=== PATIENT | female | born 1975 | race Caucasian/White ===

== ENCOUNTER 2016-09-20 13:27 | Emergency (ER) | payer OTHER ==
[2016-09-20 13:33] VITALS: TEMP 97.6
[2016-09-20 14:24] LABS: URINE APPEARANCE CLEAR; URINE BILIRUBIN NEGATIVE (NEGATIVE); URINE BLOOD NEGATIVE (NEGATIVE); URINE COLOR YELLOW; URINE GLUCOSE (UA) NEGATIVE (NEGATIVE); URINE KETONE TRACE (NEGATIVE); URINE NITRITE NEGATIVE (NEGATIVE); URINE PROTEIN NEGATIVE (NEGATIVE); URINE UROBILINOGEN NEGATIVE E.U./dl (0.2-1.0)
[2016-09-20 14:33] LABS: BASOPHIL 0.9 % (0-2.0); EOSINOPHIL 1.2 % (0-4.5); MCH 30.5 pg (25.7-33.7); MCHC 33.6 g/dl (32.0-36.0); MEAN CELL VOLUME 90.9 fl (80-96); NEUTROPHILS 73.9 % (42.8-82.8); PLATELET COUNT 318 K/MM3 (134-434); RDW 13.1 % (11.6-15.6); WHITE BLOOD COUNT 8.3 K/mm3 (4.0-10.0)
[2016-09-20 15:03] LABS: URINE LEUK ESTERASE 3+ (NEGATIVE)
[2016-09-20 15:04] LABS: URINE MUCUS RARE; URINE RBC 1 /hpf (0-3); URINE WBC <1 /hpf (3-5)
[2016-09-20 15:10] LABS: ALBUMIN 4.1 g/dl (3.4-5.0); ANION GAP 15 (8-16); CALCIUM 9.1 mg/dL (8.5-10.1); CO2 27 mmol/L (21-32); CREATININE 0.8 mg/dL (0.55-1.02); GLUCOSE,RANDOM 110 mg/dL (74-106); SGOT/AST 18 U/L (15-37); SGPT/ALT 38 U/L (12-78)
[2016-09-20] MEDS ORDERED: ACETAMINOPHEN 325 MG TABLET (FP) PO ONE (15:21)
[2016-09-20] MEDS ORDERED: ACETAMINOPHEN 325 MG TABLET (FP) ONE (15:24)
[2016-09-20 15:30] LABS: ALK PHOS 76 U/L (45-117); BILIRUBIN,TOTAL 0.4 mg/dL (0.2-1.0); TOT PROT 7.5 g/dl (6.4-8.2)
--- NOTE | 2016-09-20 15:49 | PDOC ---
History of Present Illness - History of Present Illness Initial Comments: 09/20/16 16:02 The patient is a 40 year old female who is 6 weeks with no past medical hx who presents to the ED complaining of left groin pain since yesterday. The patient states she woke two days ago with the pain and was unable to get out of bed. She needed assistance from her friend to get out of bed, get into the shower, and get dressed. She states she is having difficulty walking secondary to the pain. The patient found out last week she was . She took 4 at home tests and made an appointment with her OB /LAMINATOR HAND on the for an US. The patient denies fever, chills The patient denies diarrhea, vomiting The patient denies dysuria, vaginal bleeding or spotting. Allergies: NKDA Social: No toxic habits reported Surgical: PCP: Dr. David Fernando <Kelli Capone - Last Filed: 09/20/16 16:03> - General History Source: Patient Exam Limitations: No Limitations <Michelle Castro - Last Filed: 09/23/16 10:36> - General Chief Complaint: Pain Stated Complaint: 6 WEEKS /PAIN Time Seen by Provider: 09/20/16 14:22 Past History <Kelli Capone - Last Filed: 09/20/16 16:03> - Past Medical History Other medical history: NONE - Reproductive History Is Patient Now?: Yes (#): 2 Para: 1 - Psycho/Social/Smoking Cessation Hx Anxiety: No Suicidal Ideation: No Smoking History: Never smoked Hx Alcohol Use: No Drug/Substance Use Hx: No Substance Use Type: None <Michelle Castro - Last Filed: 09/23/16 10:36> - Past Medical History Allergies/Adverse Reactions: Allergies Allergy/AdvReac Type Severity Reaction Status Date / Time No Known Allergies Allergy Verified 09/20/16 13:33 Home Medications: Ambulatory Orders NK [No Known Home Medication] 09/20/16 Review of Systems - Review of Systems Able to Perform ROS?: Yes Comments:: 09/20/16 16:01 GENERAL/CONSTITUTIONAL: No: fever, chills, weakness, loss of appetite. HEAD, EYES, EARS, NOSE AND THROAT: No: change in vision, ear pain, discharge, sore throat, throat swelling. CARDIOVASCULAR: No: chest pain, lightheadedness, palpitations, syncope RESPIRATORY: No: cough, shortness of breath, wheezing, hemoptysis, stridor. GASTROINTESTINAL:. No: nausea, vomiting, diarrhea, rectal bleeding, constipation. GENITOURINARY: No: vaginal bleeding, dysuria, hematuria, frequency, urgency, flank pain. MUSCULOSKELETAL: +Left groin pain. No: back pain, neck pain. SKIN: No: lesions, pallor, rash or easy bruising. NEUROLOGIC: No: headache, vertigo, paresthesias, weakness ENDOCRINE: No: unexplained weight gain or loss HEMATOLOGIC/LYMPHATIC: No: anemia, easy bleeding, swelling nodes <Kelli Capone - Last Filed: 09/20/16 16:03> *Physical Exam - Vital Signs Last Vital Signs Temp Pulse Resp BP Pulse Ox 97.6 F 100 H 20 130/73 100 09/20/16 13:30 09/20/16 13:30 09/20/16 13:30 09/20/16 13:30 09/20/16 13:30 - Physical Exam Comments: 09/20/16 16:02 GENERAL: The patient is in no acute distress. HEAD: Normal with no signs of trauma. EYES: PERRLA, EOMI, sclera anicteric, conjunctiva clear. ENT: Ears normal, nares patent, oropharynx clear without exudates. Moist mucous membranes. NECK: Normal range of motion, supple without lymphadenopathy, JVD, or masses. LUNGS: Breath sounds equal, clear to auscultation bilaterally. No wheezes, and no crackles. HEART:Regular rate and rhythm, normal S1 and S2 without murmur, rub or gallop. ABDOMEN: Soft, nontender, normoactive bowel sounds. No guarding, no rebound. EXTREMITIES: Normal range of motion, no edema. No clubbing or cyanosis. No erythema, or tenderness. NEUROLOGICAL: Cranial nerves II through XII grossly intact. Normal speech. No focal neurological deficits. MUSCULOSKELETAL: Back nontender to palpation, no CVA tenderness SKIN: Warm, Dry, normal turgor, no rashes or lesions noted <Kelli Capone - Last Filed: 09/20/16 16:03> - Vital Signs Last Vital Signs Temp Pulse Resp BP Pulse Ox 97.6 F 100 H 20 130/73 100 01/14/17 13:30 09/20/16 13:30 09/20/16 13:30 09/20/16 13:30 09/20/16 13:30 <Michelle Castro - Last Filed: 09/23/16 10:36> ED Treatment Course - LABORATORY CBC & Chemistry Diagram: 09/20/16 14:25 09/20/16 14:25 - ADDITIONAL ORDERS Additional order review: Laboratory Results 09/20/16 09/20/16 14:25 14:15 Sodium 147 H Potassium 3.9 Chloride 105 Carbon Dioxide 27 Anion Gap 15 BUN 10 Creatinine 0.8 Creat Clearance w eGFR > 60 Random Glucose 110 H Calcium 9.1 Total Bilirubin 0.4 AST 18 ALT 38 Alkaline Phosphatase 76 Total Protein 7.5 Albumin 4.1 Beta HCG, Quant 4255.8 Urine Color Yellow Urine Appearance Clear Urine pH 5.0 Ur Specific [place] 1.018 Urine Protein Negative Urine Glucose (UA) Negative Urine Ketones Trace H Urine Blood Negative Urine Nitrite Negative Urine Bilirubin Negative Urine Urobilinogen Negative Ur Leukocyte Esterase 3+ H Urine RBC 1 Urine WBC <1 Ur Epithelial Cells Many Urine Mucus Rare 09/20/16 14:25 RBC 4.10 MCV 90.9 MCHC 33.6 RDW 13.1 MPV 7.0 L Neutrophils % 73.9 Lymphocytes % 15.3 Monocytes % 8.7 Eosinophils % 1.2 Basophils % 0.9 - Medications Given in the ED: ED Medications Discontinued Medications Generic Name Dose Route Start Last Admin Trade Name Freq PRN Reason Stop Dose Admin Acetaminophen 975 mg 09/20/16 15:21 09/20/16 15:23 Tylenol - PO 09/20/16 15:22 975 mg ONCE ONE Administration <Kelli Capone - Last Filed: 09/20/16 16:03> - LABORATORY CBC & Chemistry Diagram: 09/20/16 14:25 09/20/16 14:25 - ADDITIONAL ORDERS Additional order review: Laboratory Results 09/20/16 09/20/16 14:25 14:15 Sodium 147 H Potassium 3.9 Chloride 105 Carbon Dioxide 27 Anion Gap 15 BUN 10 Creatinine 0.8 Creat Clearance w eGFR > 60 Random Glucose 110 H Calcium 9.1 Total Bilirubin 0.4 AST 18 ALT 38 Alkaline Phosphatase 76 Total Protein 7.5 Albumin 4.1 Beta HCG, Quant 4255.8 Urine Color Yellow Urine Appearance Clear Urine pH 5.0 Ur Specific [place] 1.018 Urine Protein Negative Urine Glucose (UA) Negative Urine Ketones Trace H Urine Blood Negative Urine Nitrite Negative Urine Bilirubin Negative Urine Urobilinogen Negative Ur Leukocyte Esterase 3+ H Urine RBC 1 Urine WBC <1 Ur Epithelial Cells Many Urine Mucus Rare 09/20/16 14:25 RBC 4.10 MCV 90.9 MCHC 33.6 RDW 13.1 MPV 7.0 L Neutrophils % 73.9 Lymphocytes % 15.3 Monocytes % 8.7 Eosinophils % 1.2 Basophils % 0.9 - RADIOLOGY Radiology Studies Ordered: Category Date Time Status KIDNEY / RENAL US [US] Stat Ultrasound 09/20/16 15:47 Ordered TRANSVAGINAL US PREG [US] Stat Ultrasound 09/20/16 15:47 Ordered - Medications Given in the ED: ED Medications Discontinued Medications Generic Name Dose Route Start Last Admin Trade Name Freq PRN Reason Stop Dose Admin Acetaminophen 975 mg 09/20/16 15:21 09/20/16 15:23 Tylenol - PO 09/20/16 15:22 975 mg ONCE ONE Administration <Michelle Castro - Last Filed: 09/23/16 10:36> Medical Decision Making - Medical Decision Making 09/20/16 15:48 A portion of this note was documented by scribe services under my direction. I have reviewed the details of the note, within reason, and agree with the documentation with the following case summary and management plan written by me. Nursing documentation reviewed and incorporated into medical decision making The patient is a 40 year old female who is approximately 6 weeks with no past medical hx who presents to the ED complaining of left groin pain since yesterday. Pain has been worsening No dysuria or hematuria No diarrhea No vomiting No trauma DD: ovarian cyst, fibroid, ectopic, kidney stone 09/20/16 15:48 Laboratory Tests 09/20/16 09/20/16 09/20/16 14:15 14:25 14:25 WBC 8.3 Hgb 12.5 Hct 37.2 Plt Count 318 Neutrophils % 73.9 Lymphocytes % 15.3 Sodium 147 H Potassium 3.9 Chloride 105 Carbon Dioxide 27 BUN 10 Creatinine 0.8 Random Glucose 110 H Beta HCG, Quant 4255.8 Urine Ketones Trace H Urine Blood Negative Urine Nitrite Negative Ur Leukocyte Esterase 3+ H Will send for transvaginal US and US kidneys Pt given tylenol for pain Pt signed out to Dr Carias pending US <Michelle Castro - Last Filed: 09/23/16 10:36> *DC/Admit/Observation/Transfer - Attestations Scribe Attestion: 09/20/16 16:01 Documentation prepared by Kelli Capone, acting as medical reviewer for Michelle Castro MD/DO. <Kelli Capone - Last Filed: 09/20/16 16:03> <Michelle Castro - Last Filed: 09/23/16 10:36> Diagnosis at time of Disposition: LLQ pain, Early stage of - Discharge Dispostion Disposition: HOME Condition at time of disposition: Good - Referrals Referrals: David Fernando [Primary Care Provider] - - Patient Instructions Printed Discharge Instructions: DI for Ectopic , DI for Abdominal Pain -- Early Additional Instructions: Your beta hCG (hormone level) was is 4255. The ultrasound shows an intrauterine gestational sac with a complex left ovarian cyst. There is a chance that you may have an abnormal known as an ectopic or a missed . Please call your METER RECORD CLERK doctor tomorrow morning to arrange for an appointment on Thursday for a repeat beta hCG level. Please return to the emergency department immediately if your symptoms increase, if he develops vaginal bleeding, if you pass out or have any other symptoms that concern you.
--- NOTE | 2016-09-20 18:11 | PDOC ---
*Physical Exam - Vital Signs Last Vital Signs Temp Pulse Resp BP Pulse Ox 97.6 F 100 H 20 130/73 100 09/20/16 13:30 09/20/16 13:30 09/20/16 13:30 09/20/16 13:30 09/20/16 13:30 ED Treatment Course - LABORATORY CBC & Chemistry Diagram: 09/20/16 14:25 09/20/16 14:25 - ADDITIONAL ORDERS Additional order review: Laboratory Results 09/20/16 09/20/16 14:25 14:15 Sodium 147 H Potassium 3.9 Chloride 105 Carbon Dioxide 27 Anion Gap 15 BUN 10 Creatinine 0.8 Creat Clearance w eGFR > 60 Random Glucose 110 H Calcium 9.1 Total Bilirubin 0.4 AST 18 ALT 38 Alkaline Phosphatase 76 Total Protein 7.5 Albumin 4.1 Beta HCG, Quant 4255.8 Urine Color Yellow Urine Appearance Clear Urine pH 5.0 Ur Specific [place] 1.018 Urine Protein Negative Urine Glucose (UA) Negative Urine Ketones Trace H Urine Blood Negative Urine Nitrite Negative Urine Bilirubin Negative Urine Urobilinogen Negative Ur Leukocyte Esterase 3+ H Urine RBC 1 Urine WBC <1 Ur Epithelial Cells Many Urine Mucus Rare 09/20/16 14:25 RBC 4.10 MCV 90.9 MCHC 33.6 RDW 13.1 MPV 7.0 L Neutrophils % 73.9 Lymphocytes % 15.3 Monocytes % 8.7 Eosinophils % 1.2 Basophils % 0.9 - Medications Given in the ED: ED Medications Discontinued Medications Generic Name Dose Route Start Last Admin Trade Name Freq PRN Reason Stop Dose Admin Acetaminophen 975 mg 09/20/16 15:21 09/20/16 15:23 Tylenol - PO 09/20/16 15:22 975 mg ONCE ONE Administration Progress Note - Progress Note Progress Note: The patient was endorsed to me at [address] Castro pending results of the ultrasound which shows a gestational sac in the uterus and a complex left ovarian cyst measuring 2.3 cm. The beta hCG level is 4200. With no definitive yolk sac seen within the gestational sac, there is a concern for ectopic versus missed AB. I've discussed the results of the ultrasound as well as the beta hCG level with the patient I have also discussed the potential for ectopic as well as the ramifications of a ruptured ectopic . I've instructed the patient to call her BULLET CASTING OPERATOR practice tomorrow morning and have an appointment arranged for Thursday for a repeat beta hCG to ensure that the beta is rising appropriately as well as an ultrasound. I have also instructed the patient to return the emergency department if her pain increases, if she develops vaginal bleeding, syncope or any other symptoms. *DC/Admit/Observation/Transfer Diagnosis at time of Disposition: LLQ pain, Early stage of - Discharge Dispostion Disposition: HOME Condition at time of disposition: Stable Admit: No - Referrals Referrals: David Fernando [Primary Care Provider] - - Patient Instructions Printed Discharge Instructions: DI for Abdominal Pain -- Early , DI for Ectopic Additional Instructions: Your beta hCG (hormone level) was is 4255. The ultrasound shows an intrauterine gestational sac with a complex left ovarian cyst. There is a chance that you may have an abnormal known as an ectopic or a missed . Please call your BULLET CASTING OPERATOR doctor tomorrow morning to arrange for an appointment on Thursday for a repeat beta hCG level. Please return to the emergency department immediately if your symptoms increase, if he develops vaginal bleeding, if you pass out or have any other symptoms that concern you. - Post Discharge Activity
[2016-09-20 18:24] VITALS: BP 133/78; PULSE 70
== END 2016-09-20 18:24 | disposition home or self-care (01) ==
LOC: JER 13:27
DX: O26.891 Other specified pregnancy related conditions, first trimester (principal); O34.81 Maternal care for other abnormalities of pelvic organs, first trimester; N83.292 Other ovarian cyst, left side; Z3A.01 Less than 8 weeks gestation of pregnancy
CPT/HCPCS: 36415; 76775-TC; 76817-TC; 80053; 81003; 81015; 84702; 85025; 86850; 86900; 86901; 99283-25